=== PATIENT | female | born 1965 | race Caucasian/White ===

== ENCOUNTER 2019-04-08 04:48 | Inpatient (IN) | payer MEDICAID ==
[~2019-04-08] VITALS: Ht 152.4 cm; Wt 1.4 kg
[2019-04-08 01:30] VITALS: BP_SYST 162; BP_SYST 168; BP_DIAS 88
[2019-04-08 04:00] VITALS: BP 188/92
[2019-04-08] MEDS ORDERED: MAGNESIUM/ALUMINUM HYDROXIDE/SIMETHICONE 30ML UDC PO PRN ×2 (06:15→10:00)
[2019-04-08] MEDS ORDERED: HYDROCODONE/ACETAMINOPHEN 5/325MG TABLET PO PRN (06:15)
[2019-04-08] MEDS ORDERED: ACETAMINOPHEN 325MG TABLET PO PRN (06:15)
[2019-04-08] MEDS ORDERED: ONDANSETRON HCL 4MG/2ML INJ IV PRN (06:15)
[2019-04-08 08:00] VITALS: BP 165/86
[2019-04-08] MEDS ORDERED: ENOXAPARIN 40MG/0.4ML SYR SUBCUT SCH (10:00)
[2019-04-08] MEDS ORDERED: IPRATROPIUM/ALBUTEROL 0.5-3(2.5)MG/3ML NEB NEB PRN (10:00)
[2019-04-08] MEDS ORDERED: DOCUSATE SODIUM 100MG CAPSULE PO PRN (10:00)
[2019-04-08] MEDS ORDERED: GUAIFENESIN 200MG/10ML SUGAR FREE UDC PO PRN (10:00)
[2019-04-08] MEDS ORDERED: LORAZEPAM 0.5MG TABLET PO PRN (10:00)
[2019-04-08] MEDS ORDERED: CLONIDINE 0.1MG TABLET PO PRN (10:00)
[2019-04-08] MEDS ORDERED: LEVOFLOXACIN 500MG PREMIX 100 ML IV SCH (11:00)
[2019-04-08] MEDS ORDERED: PANTOPRAZOLE SODIUM 40 MG/VIAL IV SCH (11:00)
[2019-04-08] MEDS ORDERED: ZOLPIDEM TARTRATE 5MG TABLET PO PRN (21:00)
[2019-04-09] MEDS ORDERED: LEVOFLOXACIN 500MG PREMIX 100 ML IV SCH (10:00)
== END 2019-04-08 10:42 | disposition left against medical advice (07) | DRG 465 ==
LOC: 6EST 04:48
PROVIDERS: ADMIT Internal Medicine; ATTEND Internal Medicine
DX: N13.30 Unspecified hydronephrosis (principal); C55 Malignant neoplasm of uterus, part unspecified; Z53.29 Procedure and treatment not carried out because of patient's decision for other reasons; I70.0 Atherosclerosis of aorta
CPT/HCPCS: J1956